=== PATIENT | male | born 1935 | race Caucasian/White ===

== ENCOUNTER 2021-07-28 18:31 | Emergency (ER) | payer MEDICARE ==
[~2021-07-28] VITALS: Ht 185.4 cm; Wt 136.1 kg
[2021-07-28 18:31] VITALS: BP_SYST 116
--- NOTE | 2021-07-28 18:35 | NUR ---
Patient to ER bed 03 to gown for evaluation. Side rails up.
--- NOTE | 2021-07-28 18:40 | NUR ---
First contact with pt. Pt has cc of left sided weakness. Pt states that he has hx of CVA and has slowly regained funtionality. Pt is AxOx 4, gcs 15, resp e/u and tachypneic, s1s2 regular. Skins warm, dry, and intact with bruising and healed abrasions noted to bilateral arms. Awaiting evaluation and further orders.
--- NOTE | 2021-07-28 18:50 | NUR ---
Dr Munson evaluating patient at bedside
[2021-07-28] MEDS ORDERED: IOHEXOL 350 mgI/mL, 150 ML INFUS..BTL IV ONE (18:56)
[2021-07-28 19:11] LABS: BASOPHILS # (AUTO) 0.1 K/uL (0.0-0.2); BASOPHILS % (AUTO) 0.7 % (0.0-2.0); EOSINOPHILS # (AUTO) 0.2 K/uL (0.0-0.4); EOSINOPHILS % (AUTO) 1.6 % (0.0-4.0); HEMATOCRIT 32.4 % (36-54); HEMOGLOBIN 10.3 g/dL (14.0-18.0); LYMPHOCYTES # (AUTO) 2.1 K/uL (1.0-5.5); LYMPHOCYTES % (AUTO) 17.3 % (20.5-51.5); MEAN CORPUSCULAR HEMOGLOBIN 33 pg (27-31); MEAN CORPUSCULAR HGB CONC 32 % (32-36); MEAN CORPUSCULAR VOLUME 103 fL (79.0-98.0); MONOCYTES # (AUTO) 1.2 K/uL (0.0-1.0); MONOCYTES % (AUTO) 9.6 % (1.7-9.3); NEUTROPHILS # (AUTO) 8.5 K/uL (1.8-7.7); NEUTROPHILS % (AUTO) 70.8 % (40.0-70.0); PLATELET COUNT (AUTO) 271 K/uL (130-430); RED BLOOD CELL COUNT(AUTO) 3.15 MIL/uL (4.2-6.2); RED CELL DISTRIBUTION WIDTH 17.7 % (9.0-15.0)
[2021-07-28 19:23] LABS: ANION GAP 8 (5-15); CALCIUM 9.9 mg/dL (8.4-11.0); CHLORIDE 102 mmol/L (98-107); GLUCOSE 206 mg/dL (70-99); POTASSIUM 4.6 mmol/L (3.5-5.1); SODIUM SERUM 134 mmol/L (136-145); UREA NITROGEN, BLOOD 69 mg/dL (8-21)
[2021-07-28 19:31] LABS: ALANINE AMINOTRANSFERASE 24 U/L (12-78); ALBUMIN 2.6 g/dL (3.4-4.8); ASPARTATE AMINOTRANSFERASE 16 U/L (10-37); TOTAL BILIRUBIN < 0.1 mg/dL (0.0-1.0)
[2021-07-28] MEDS ORDERED: cefTRIAXone 1 GM in D5W 50 ML IV ONE (20:00)
--- NOTE | 2021-07-28 20:00 | NUR ---
Pt utilized urinal with minimal assistance from RN.
[2021-07-28] MEDS ORDERED: cefTRIAXone 1 GM VIAL ONE (20:24)
[2021-07-28] MEDS ORDERED: ASPIRIN 81 MG TAB.CHEW PO ONE (20:30)
--- NOTE | 2021-07-28 21:00 | NUR ---
Urine specimen collected and analyzed in ER. Results given to ER MD. Specimen walked to lab.
[2021-07-28 21:36] LABS: BILIRUBIN,URINE NEGATIVE (NEGATIVE); BLOOD, URINE NEGATIVE (NEGATIVE); CLARITY/URINE CLEAR (CLEAR); COLOR,URINE YELLOW (YELLOW); GLUCOSE,URINE TRACE (NEGATIVE); KETONES,URINE NEGATIVE (NEGATIVE); LEUKOCYTE ESTERASE ,URINE NEGATIVE (NEGATIVE); NITRITE, URINE NEGATIVE (NEGATIVE); PROTEIN URINE TRACE (NEGATIVE); UROBILINOGEN,URINE 0.2 (0.2-1.0)
--- NOTE | 2021-07-28 22:26 | NUR ---
Report called to [facility] (Mariah FORTE).
--- NOTE | 2021-07-29 | NUR ---
Pt provided with sandwich and water. Pt tolerated well.
[2021-07-29 00:42] VITALS: BP_SYST 124
--- NOTE | 2021-07-29 00:46 | NUR ---
Pt transferred with ambulance to [facility]. Pt verbalizes understanding of admission, all questins answered. All belongings with patient.
== END 2021-07-29 00:46 | disposition short-term general hospital (02) ==
LOC: SED 18:31
DX: G45.9 Transient cerebral ischemic attack, unspecified (principal); N39.0 Urinary tract infection, site not specified; Z88.0 Allergy status to penicillin; Z88.1 Allergy status to other antibiotic agents; Z88.8 Allergy status to other drugs, medicaments and biological substances; Z20.822 Contact with and (suspected) exposure to COVID-19
CPT/HCPCS: 36415; 70450; 71045; 76376; 80053; 81003; 82962; 83605; 84484; 85025; 87040; 87426; 96365; 99285; J0696; Q9967